=== PATIENT | female | born 1985 | race Caucasian/White ===

== ENCOUNTER 2016-04-22 15:53 | Emergency (ER) | payer OTHER ==
[~2016-04-22] VITALS: Ht 162.6 cm; Wt 80.4 kg
[~2016-04-22 15:53] MED LIST: DELTASONE20 MG PO; K-DUR20 MEQ PO; MOTRIN IB200 MG PO; MOTRIN800 MG PO; NOHOMEMEDS; NORCO 5/3251 TABLET PO; PROVENTIL17 G1 IH; Symbicort 160-4.5 mc IH; ZITHROMAX250 MG PO
[2016-04-22 17:12] LABS: ADD MIUA? NO; BILIRUBIN NEGATIVE; BLOOD NEGATIVE; COLOR YELLOW ((YELLOW)); GLUCOSE (STRIP) NEGATIVE; KETONES NEGATIVE; LEUKOCYTES NEGATIVE; NITRITE NEGATIVE; PH, URINE 5.5 (5-8); PROTEIN (STRIP) NEGATIVE; SPECIFIC GRAVITY 1.015 (1.000-1.030); UCUL ADDED? NO; UROBILINOGEN 0.2 MG/DL (0.2-1.0)
[2016-04-22 17:15] LABS: HEMATOCRIT 41.8 % (36.0-46.0); MCH 36.2 PG (29.0-34.0); MCHC 35.4 G/DL (30.0-36.0); MCV 102.2 FL (83-99); MEAN PLAT.VOLUME 9.5 uM^3 (9.5-12.4); PLATELET COUNT 271 K/uL (156-360); RBC DIS.WIDTH-CV 14.8 % (11.8-14.6); RBC DIS.WIDTH-SD 55.9 % (39-53); RED BLOOD COUNT 4.09 M/uL (3.80-5.20); WHITE BLOOD COUNT 9.6 K/uL (4.1-10.2)
[2016-04-22 17:24] LABS: BASOPHIL COUNT 0.1 K/uL (0-0.1); EOSINOPHIL (%) 1.4 % (0-5); EOSINOPHIL COUNT 0.1 K/uL (0-0.3); IMMATURE GRANULOCYTE (%) 0.3 % (0.0-0.7); IMMATURE GRANULOCYTE COUNT 0.3 K/uL; LYMPHOCYTE COUNT 3.4 K/uL (1.0-2.8); MONOCYTE (%) 8.9 % (3-12); MONOCYTE COUNT 0.9 K/uL (0-0.8); NEUTROPHIL COUNT 5.1 K/uL (1.8-6.4)
[2016-04-22 17:26] LABS: CHLORIDE 107 mEq/L (99-109); POTASSIUM 3.6 mEq/L (3.7-5.4); SODIUM 141 mEq/L (136-147)
[2016-04-22 17:28] LABS: GLUCOSE 94 mg/dL (70-99)
[2016-04-22 17:29] LABS: ANION GAP 17 MEQ/L (2-14)
[2016-04-22 17:30] LABS: TOTAL BILIRUBIN 0.2 mg/dL (0.0-1.0)
[2016-04-22 17:31] LABS: SERUM ETHYL ALCOHOL 431 mg/dL
[2016-04-22 17:32] LABS: ALKALINE PHOSPHATASE 65 IU/L (3-129)
[2016-04-22 17:34] LABS: UREA NITROGEN (BUN) 11 mg/dL (9-23)
[2016-04-22 17:35] LABS: GFR ESTIMATE (CALCULATED) > 59 mL/min/; SALICYLATE < 5.0 MG/DL (15-30)
[2016-04-22 17:36] LABS: CREATINE KINASE 173 IU/L (1-294); LIPASE 63 U/L (1.0-51.0); TOTAL CK 173 IU/L (1-294)
[2016-04-22 17:37] LABS: AMPHETAMINE NEGATIVE (500 ng/mL); BARBITURATES NEGATIVE (200 ng/mL); BENZODIAZEPINES NEGATIVE (150 ng/mL); COCAINE NEGATIVE (150 ng/mL); INTERNAL CONTROLS VALID? YES; METHADONE NEGATIVE (200 ng/mL); METHAMPHETAMINE NEGATIVE (500 ng/mL); OPIATES (MORPHINE) NEGATIVE (100 ng/mL); OXYCODONE NEGATIVE (100 ng/mL); PHENCYCLIDINE NEGATIVE (25 ng/mL); PROPOXYPHENE NEGATIVE (300 ng/mL); THC CANNABINOIDS NEGATIVE (50 ng/mL); TRICYCLIC ANTIDEPRESSANTS NEGATIVE (300 ng/mL)
[2016-04-22 17:50] LABS: QUANTITATIVE HCG < 4.0 MIU/ML
[2016-04-22 17:51] LABS: CK-MB 1.8 ng/mL (0.0-4.9)
[2016-04-23 01:22] VITALS: BP 96/60
== END 2016-04-23 01:22 | disposition home or self-care (01) ==
LOC: EME 15:53
PROVIDERS: Emergency Medicine
DX: T68.XXXA Hypothermia, initial encounter (principal); F10.129 Alcohol abuse with intoxication, unspecified; Z59.0 Homelessness; Z78.1 Physical restraint status; J45.909 Unspecified asthma, uncomplicated; F17.200 Nicotine dependence, unspecified, uncomplicated
CPT/HCPCS: 70450; 71010; 72125; 80053; 81003; 82550; 82553; 83605; 83690; 84702; 85025; 93005; 99281; 99285; G0480; J1200; J2060; J7030

== ENCOUNTER 2016-08-09 08:48 | Day surgery (SDC) | payer OTHER ==
[~2016-08-09] VITALS: Ht 154.9 cm; Wt 78.5 kg
[~2016-08-09 08:48] MED LIST changes: +PROZAC20 MG PO; +SEROQUEL12.5 MG PO; +VENTOLIN HFA18 GM IH
[2016-08-09 09:20] VITALS: BP 128/91
[2016-08-09 09:25] VITALS: BP 128/91
[2016-08-09] MEDS ORDERED: NORCO 5/3251 TABLET PO (11:00)
[2016-08-09] MEDS ORDERED: MOTRIN600 MG PO (11:00)
[2016-08-09 11:35] VITALS: BP 118/81
[2016-08-09 13:05] VITALS: BP 139/98
== END 2016-08-09 13:10 | disposition home or self-care (01) ==
LOC: SDC 08:48
PROC: 0UBC7ZX Excision of Cervix, Via Natural or Artificial Opening, Diagnostic (ICD-10-PCS; principal; 2016-08-09)
DX: D06.0 Carcinoma in situ of endocervix (principal); J45.909 Unspecified asthma, uncomplicated; F10.20 Alcohol dependence, uncomplicated; F17.210 Nicotine dependence, cigarettes, uncomplicated; F41.8 Other specified anxiety disorders; E66.09 Other obesity due to excess calories; Z82.49 Family history of ischemic heart disease and other diseases of the circulatory system; Z68.32 Body mass index [BMI] 32.0-32.9, adult
CPT/HCPCS: 88305; 88307; J0131; J1100; J1885; J2250; J2405; J3010

== ENCOUNTER 2016-08-13 20:17 | Emergency (ER) | payer OTHER ==
[~2016-08-13] VITALS: Ht 154.9 cm; Wt 76.3 kg
[~2016-08-13 20:17] MED LIST changes: +MOTRIN600 MG PO
[2016-08-13 21:02] LABS: HEMATOCRIT 38.6 % (36.0-46.0); MCH 33.8 PG (29.0-34.0); MCHC 33.4 G/DL (30.0-36.0); MEAN PLAT.VOLUME 9.1 uM^3 (9.5-12.4); PLATELET COUNT 324 K/uL (156-360); RBC DIS.WIDTH-CV 15.9 % (11.8-14.6); RBC DIS.WIDTH-SD 59.6 % (39-53); RED BLOOD COUNT 3.82 M/uL (3.80-5.20); WHITE BLOOD COUNT 9.2 K/uL (4.1-10.2)
[2016-08-13 21:11] LABS: CHLORIDE 107 mEq/L (99-109); POTASSIUM 3.7 mEq/L (3.7-5.4); SODIUM 143 mEq/L (136-147)
[2016-08-13 21:13] LABS: GLUCOSE 74 mg/dL (70-99)
[2016-08-13 21:15] LABS: ANION GAP 10 MEQ/L (2-14)
[2016-08-13 21:16] LABS: SERUM ETHYL ALCOHOL 49 mg/dL
[2016-08-13 21:17] LABS: GFR ESTIMATE (CALCULATED) > 59 mL/min/
[2016-08-13 21:19] LABS: UREA NITROGEN (BUN) 13 mg/dL (9-23)
[2016-08-13 21:20] LABS: SALICYLATE < 5.0 MG/DL (15-30)
[2016-08-13 21:26] LABS: QUANTITATIVE HCG < 4.0 MIU/ML
[2016-08-13 23:18] VITALS: BP 107/82
[2016-08-13 23:27] LABS: AMPHETAMINE NEGATIVE (500 ng/mL); BARBITURATES NEGATIVE (200 ng/mL); BENZODIAZEPINES NEGATIVE (150 ng/mL); COCAINE NEGATIVE (150 ng/mL); INTERNAL CONTROLS VALID? YES; METHADONE NEGATIVE (200 ng/mL); METHAMPHETAMINE NEGATIVE (500 ng/mL); OPIATES (MORPHINE) NEGATIVE (100 ng/mL); OXYCODONE NEGATIVE (100 ng/mL); PHENCYCLIDINE NEGATIVE (25 ng/mL); PROPOXYPHENE NEGATIVE (300 ng/mL); THC CANNABINOIDS NEGATIVE (50 ng/mL); TRICYCLIC ANTIDEPRESSANTS NEGATIVE (300 ng/mL)
== END 2016-08-13 23:19 | disposition home or self-care (01) ==
LOC: EME 20:17
PROVIDERS: Emergency Medicine
DX: T50.991A Poisoning by other drugs, medicaments and biological substances, accidental (unintentional), initial encounter (principal); F19.10 Other psychoactive substance abuse, uncomplicated; F32.9 Major depressive disorder, single episode, unspecified; F17.200 Nicotine dependence, unspecified, uncomplicated
CPT/HCPCS: 71010; 80048; 84702; 85027; 94640; 99281; 99284; G0480

== ENCOUNTER 2016-08-15 00:57 | Inpatient (IN) | payer OTHER ==
[~2016-08-15] VITALS: Ht 154.9 cm; Wt 74.6 kg
[2016-08-15 02:21] LABS: ADD MIUA? YES; BILIRUBIN NEGATIVE; BLOOD NEGATIVE; COLOR YELLOW ((YELLOW)); GLUCOSE (STRIP) NEGATIVE; KETONES NEGATIVE; LEUKOCYTES LARGE; NITRITE NEGATIVE; PROTEIN (STRIP) 100; SPECIFIC GRAVITY 1.018 (1.000-1.030)
[2016-08-15 02:31] LABS: ADD MEDTOX COMMENT Y; AMPHETAMINE NEGATIVE (500 ng/mL); BARBITURATES NEGATIVE (200 ng/mL); BENZODIAZEPINES NEGATIVE (150 ng/mL); COCAINE NEGATIVE (150 ng/mL); INTERNAL CONTROLS VALID? YES; METHADONE NEGATIVE (200 ng/mL); METHAMPHETAMINE NEGATIVE (500 ng/mL); OPIATES (MORPHINE) NEGATIVE (100 ng/mL); OXYCODONE NEGATIVE (100 ng/mL); PHENCYCLIDINE NEGATIVE (25 ng/mL); PROPOXYPHENE NEGATIVE (300 ng/mL); THC CANNABINOIDS PRESUMPTIVE POSITIVE (50 ng/mL); TRICYCLIC ANTIDEPRESSANTS NEGATIVE (300 ng/mL)
[2016-08-15 02:46] LABS: HEMATOCRIT 39.8 % (36.0-46.0); MCH 33.8 PG (29.0-34.0); MCHC 33.7 G/DL (30.0-36.0); MCV 100.3 FL (83-99); MEAN PLAT.VOLUME 9.2 uM^3 (9.5-12.4); PLATELET COUNT 330 K/uL (156-360); RBC DIS.WIDTH-CV 15.7 % (11.8-14.6); RED BLOOD COUNT 3.97 M/uL (3.80-5.20); WHITE BLOOD COUNT 10.9 K/uL (4.1-10.2)
[2016-08-15 02:50] LABS: BACTERIA 2+ /HPF; EPITHELIAL CELLS 4+ /HPF; MUCUS 2+ /LPF; RED BLOOD CELLS 0-5 /HPF (0-5); UCUL ADDED? YES; WHITE BLOOD CELLS TNTC /HPF (0-5)
[2016-08-15 03:02] LABS: CHLORIDE 105 mEq/L (99-109); POTASSIUM 3.7 mEq/L (3.7-5.4); SODIUM 139 mEq/L (136-147)
[2016-08-15 03:04] LABS: GLUCOSE 109 mg/dL (70-99)
[2016-08-15 03:05] LABS: ANION GAP 11 MEQ/L (2-14)
[2016-08-15 03:07] LABS: SERUM ETHYL ALCOHOL < 10 mg/dL
[2016-08-15 03:08] LABS: GFR ESTIMATE (CALCULATED) > 59 mL/min/; UREA NITROGEN (BUN) 10 mg/dL (9-23)
[2016-08-15 03:18] LABS: QUANTITATIVE HCG < 4.0 MIU/ML
[2016-08-15] MEDS ORDERED: SEROPHENE50 MG PO (06:09)
[2016-08-15] MEDS ORDERED: PROZAC40 MG PO (06:09)
[2016-08-15 07:54] VITALS: BP 127/98
[2016-08-15 15:29] VITALS: BP 139/77
[2016-08-16 07:44] VITALS: BP 127/83
[2016-08-16 15:24] VITALS: BP 136/67
[2016-08-17 07:30] VITALS: BP 115/76
[2016-08-17 15:23] VITALS: BP 135/81
[2016-08-18 07:26] VITALS: BP 127/62
[2016-08-18] MEDS ORDERED: NITROFURANTOIN100 M3 PO (10:12)
[2016-08-18] MEDS ORDERED: DIVALPROEX SOD250 M1 PO (10:12)
[2016-08-18] MEDS ORDERED: BUPROPION HCL100 M1 PO (10:12)
[2016-08-18] MEDS ORDERED: VENTOLIN HFA18 GM IH (10:12)
[2016-08-21] MEDS ORDERED: BUPROPION HCL100 M1 PO (10:01)
== END 2016-08-18 11:40 | disposition home or self-care (01) | DRG 885 ==
LOC: EME 00:57 → 1WEST 03:56 → EDOF 03:56 → 1WEST 05:37
PROVIDERS: Emergency Medicine
DX: F33.9 Major depressive disorder, recurrent, unspecified (principal); F43.21 Adjustment disorder with depressed mood; F17.210 Nicotine dependence, cigarettes, uncomplicated; R45.851 Suicidal ideations; S51.812A Laceration without foreign body of left forearm, initial encounter; Y28.1XXA Contact with knife, undetermined intent, initial encounter; F10.10 Alcohol abuse, uncomplicated; F12.10 Cannabis abuse, uncomplicated; F60.9 Personality disorder, unspecified; Z59.0 Homelessness; Z88.6 Allergy status to analgesic agent
CPT/HCPCS: 80048; 81003; 84702; 84999; 85027; 87086; 90837; 94640; 94640 76; 97150 GO; 99202; 99281; 99285; G0480; Q0169

== ENCOUNTER 2016-08-23 12:02 | Emergency (ER) | payer OTHER ==
[~2016-08-23 12:02] MED LIST changes: +BUPROPION HCL100 M1 PO; +DIVALPROEX SOD250 M1 PO; +NITROFURANTOIN100 M3 PO; +PROZAC40 MG PO; +SEROPHENE50 MG PO
== END 2016-08-23 12:11 | disposition left against medical advice (07) ==
LOC: EME 12:02
DX: F16.10 Hallucinogen abuse, uncomplicated (principal); F10.10 Alcohol abuse, uncomplicated; F17.200 Nicotine dependence, unspecified, uncomplicated; J45.909 Unspecified asthma, uncomplicated; F32.9 Major depressive disorder, single episode, unspecified; Z88.5 Allergy status to narcotic agent

== ENCOUNTER 2016-08-23 15:27 | Emergency (ER) | payer OTHER | END 2016-08-23 15:33 | disposition home or self-care (01) | LOC: EME 15:27 | DX: F16.10 Hallucinogen abuse, uncomplicated (principal); F10.10 Alcohol abuse, uncomplicated; F17.200 Nicotine dependence, unspecified, uncomplicated; J45.909 Unspecified asthma, uncomplicated ==

== ENCOUNTER 2016-08-25 21:20 | Emergency (ER) | payer OTHER ==
[~2016-08-25] VITALS: Ht 157.5 cm; Wt 76.4 kg
[2016-08-25 22:38] VITALS: BP 113/77
== END 2016-08-25 22:39 | disposition home or self-care (01) ==
LOC: EME → EDBD 21:20 → EME 21:20 → EDSEX 21:20 → EME 22:39
DX: T50.991A Poisoning by other drugs, medicaments and biological substances, accidental (unintentional), initial encounter (principal); F10.129 Alcohol abuse with intoxication, unspecified; F32.9 Major depressive disorder, single episode, unspecified; F17.200 Nicotine dependence, unspecified, uncomplicated; Z88.6 Allergy status to analgesic agent
CPT/HCPCS: 99281; 99284

== ENCOUNTER 2016-08-27 15:01 | Emergency (ER) | payer OTHER ==
[~2016-08-27] VITALS: Ht 154.9 cm; Wt 78.3 kg
[2016-08-27 15:52] VITALS: BP 108/73
== END 2016-08-27 16:04 | disposition home or self-care (01) ==
LOC: EME 15:01
DX: T40.7X1A Poisoning by cannabis (derivatives), accidental (unintentional), initial encounter (principal); F12.10 Cannabis abuse, uncomplicated; J45.909 Unspecified asthma, uncomplicated; F17.200 Nicotine dependence, unspecified, uncomplicated
CPT/HCPCS: 99281; 99284

== ENCOUNTER 2016-09-30 08:16 | Day surgery (SDC) | payer OTHER ==
[~2016-09-30] VITALS: Ht 154.9 cm; Wt 74.4 kg
[~2016-09-30 08:16] MED LIST changes: +DEPAKOTE250 MG PO; +WELLBUTRIN100 MG PO
[2016-09-30 08:47] VITALS: BP 122/71
[2016-09-30 09:24] LABS: BASOPHIL COUNT 0.1 K/uL (0-0.1); EOSINOPHIL (%) 3.6 % (0-5); EOSINOPHIL COUNT 0.3 K/uL (0-0.3); HEMATOCRIT 39.4 % (36.0-46.0); IMMATURE GRANULOCYTE (%) 0.7 % (0.0-0.7); IMMATURE GRANULOCYTE COUNT 0.1 K/uL; MCH 34.6 PG (29.0-34.0); MCHC 33.5 G/DL (30.0-36.0); MCV 103.1 FL (83-99); MEAN PLAT.VOLUME 9.8 uM^3 (9.5-12.4); MONOCYTE (%) 8.3 % (3-12); MONOCYTE COUNT 0.6 K/uL (0-0.8); NEUTROPHIL (%) 57.5 % (45-76); PLATELET COUNT 284 K/uL (156-360); RBC DIS.WIDTH-CV 15.5 % (11.8-14.6); RBC DIS.WIDTH-SD 59.3 % (39-53); RED BLOOD COUNT 3.82 M/uL (3.80-5.20); WHITE BLOOD COUNT 6.9 K/uL (4.1-10.2)
[2016-09-30 09:28] LABS: AMPHETAMINES QUANT VALUE 0 NG/ML; BARBITUATES QUANT VALUE 0 NG/ML; BENZODIAZEPINES QUANT VALUE 0 NG/ML; BENZODIAZEPINES, URINE SCREEN Negative (200 ng/mL); OPIATES QUANTITATIVE VALUE 0 NG/ML; PHENCYCLIDINE QUANT VALUE 0 NG/ML
[2016-09-30] MEDS ORDERED: NORCO 5/3251 TABLET PO (11:02)
[2016-09-30] MEDS ORDERED: MOTRIN600 MG PO (11:02)
[2016-09-30 12:20] VITALS: BP 146/92
[2016-09-30 13:21] VITALS: BP 131/90
== END 2016-09-30 13:50 | disposition home or self-care (01) ==
LOC: SDC 08:16
PROVIDERS: Obstetrics & Gynecology
DX: Z30.2 Encounter for sterilization (principal); D06.9 Carcinoma in situ of cervix, unspecified; J45.909 Unspecified asthma, uncomplicated; E66.9 Obesity, unspecified; Z68.30 Body mass index [BMI] 30.0-30.9, adult; F17.210 Nicotine dependence, cigarettes, uncomplicated; Z82.49 Family history of ischemic heart disease and other diseases of the circulatory system
CPT/HCPCS: 80306 90; 84702; 85025; 88305; J0330; J1100; J1170; J2250; J2405; J3010; S0020

== ENCOUNTER 2017-01-20 18:16 | Emergency (ER) | payer OTHER ==
[~2017-01-20] VITALS: Ht 154.9 cm; Wt 86.2 kg
[2017-01-20 19:19] VITALS: BP 128/72
== END 2017-01-20 19:20 | disposition home or self-care (01) ==
LOC: EME 18:16
DX: F19.10 Other psychoactive substance abuse, uncomplicated (principal); J45.909 Unspecified asthma, uncomplicated; F32.9 Major depressive disorder, single episode, unspecified; F41.9 Anxiety disorder, unspecified; F17.200 Nicotine dependence, unspecified, uncomplicated; Z88.8 Allergy status to other drugs, medicaments and biological substances
CPT/HCPCS: 99281; 99284

== ENCOUNTER 2017-02-07 23:21 | Emergency (ER) | payer OTHER ==
[~2017-02-07] VITALS: Ht 154.9 cm; Wt 86.9 kg
[2017-02-08] MEDS ORDERED: AMOXICILLIN500 M1 PO (01:05)
[2017-02-08 01:38] VITALS: BP 124/96
== END 2017-02-08 01:39 | disposition home or self-care (01) ==
LOC: EXP 23:21 → EME 23:21 → EXP 02-08 01:39
PROC: 0CQ1XZZ Repair Lower Lip, External Approach (ICD-10-PCS; principal; 2017-02-08)
DX: S01.511A Laceration without foreign body of lip, initial encounter (principal); Y04.0XXA Assault by unarmed brawl or fight, initial encounter
CPT/HCPCS: 99281; 99284

== ENCOUNTER 2017-03-27 02:03 | Emergency (ER) | payer OTHER ==
[~2017-03-27] VITALS: Ht 154.9 cm; Wt 86.6 kg
[~2017-03-27 02:03] MED LIST changes: +AMOXICILLIN500 M1 PO
== END 2017-03-27 05:17 ==
LOC: EME 02:03
PROC: 5A12012 Performance of Cardiac Output, Single, Manual (ICD-10-PCS; principal; 2017-03-27)
DX: I46.9 Cardiac arrest, cause unspecified (principal); Z59.0 Homelessness
CPT/HCPCS: 80048; 81003; 82150; 83605; 83690; 84484; 84702; 85025; 85610; 85730; 86850; 86900; 86901; 87040; 99281; 99285; G0480; J2310